=== PATIENT | male | born 2000 | race Caucasian/White ===

== ENCOUNTER 2025-06-06 13:41 | Emergency (ER) | payer OTHER, SELFPAY ==
[2025-06-06 13:42] VITALS: BP 116/68; BMI 26.0
[2025-06-06 13:47] VITALS: BP 116/68
[2025-06-06 13:57] LABS: Hematocrit 51.1 % (39.0-52.0); Hemoglobin 17.7 g/dL (13.0-18.0); Mean Corp Hgb Conc. 34.6 g/dL (33.0-37.0); Mean Corpuscular Volume 85.7 fL (80.0-94.0); Nucleated Red Blood Cells % 0 % (-); Platelet Count 258 10^3/uL (130-400); Red Cell Dist. Width 12.1 % (11.5-14.5)
[2025-06-06 14:00] VITALS: BP 119/78
[2025-06-06 14:18] LABS: ALT (SGPT) 20 U/L (0-50); AST (SGOT) 26 U/L (17-59); Albumin 5.2 g/dl (3.5-5.0); Alkaline Phosphatase 49 U/L (38-126); Blood Urea Nitrogen 24 mg/dl (9-20); Calcium 10.2 mg/dl (8.4-10.2); Carbon Dioxide 30 mmol/L (22-30); Chloride 99 mmol/L (98-107); Estimated Creatinine Clearance 83 ml/min; Glucose 113 mg/dl (70-99); Potassium 4.9 mmol/L (3.5-5.1); Sodium 138 mmol/L (135-145); Total Protein 7.8 g/dl (6.3-8.2); eGFR > 60.00
--- NOTE | 2025-06-06 14:21 | ED.GENMED ---
History of Present Illness
General
Chief Complaint: Dizziness
Source: patient
Time Seen by Provider: 06/06/25 13:56
History of Present Illness
History of Present Illness:
24-year-old male presents to the emergency room from [facility] because he felt his heart was fluttering. Patient developed the symptoms after taking his Wellbutrin. He is concerned he may have got too much. He states that
they typically crushes medications so he is not sure if it was just 1 pill and there patient denies taking any recreational drugs. He denies any other complaints. He has been incarcerated for the past week.
Phy Exam
Physical Exam
Physical Exam:
General: Awake, Alert, Oriented X3. No acute distress.
Vitals: unremarkable
Head: Atraumatic
Eyes: Pupils equal, EOMI
Throat: Airway intact, no exudates
Neck: Trachea midline
Lungs: Clear and equal b/l
Heart: Regular rate, no murmurs
Abd: Soft, Nontender, No pulsatile mass
Neuro: Nonfocal
Skin: Warm, dry, no rash
Extremities: pulses equal b/l, no edema
Course
Orders/Labs/Results
Orders:
Orders
06/06/25 13:49
EKG [Electrocardiogram (*1)] Urgent
Reason for Study: Tachycardia
EKG- Treatment ONCE
06/06/25 13:51
Complete Blood Count/With Diff Urgent
Comprehensive Metabolic Panel Urgent
Abnormal Lab Results
06/06/25
13:51
Absolute Monos (auto) 1.0 H 10^3/uL
(0.1-0.6)
Lymphocytes % 16.0 L %
(20.5-51.1)
Monocytes % 11.0 H %
(1.7-9.3)
BUN 24 H mg/dl
(9-20)
Glucose 113 H mg/dl
(70-99)
Albumin 5.2 H g/dl
(3.5-5.0)
06/06/25 13:51
06/06/25 13:51
Vital Signs
Initial and Last Documented VS:
Initial Vital Signs
Temp Pulse Resp BP Pulse Ox
97.5 F 68 20 116/68 99
06/06/25 13:42 06/06/25 13:42 06/06/25 13:42 06/06/25 13:42 06/06/25 13:42
Last Documented Vital Signs
Temp Pulse Resp BP Pulse Ox
97.5 F 70 19 119/78 99
06/06/25 13:42 06/06/25 14:30 06/06/25 14:30 06/06/25 14:00 06/06/25 14:30
MDM/Problems Addressed
Differential Diagnosis Includes:
SVT, PACs, PVCs
MDM/Problems Addressed:
Patient presents with palpitations and feeling jittery after taking his Wellbutrin at present. Vital signs are normal here. He was observed for an hour without any abnormalities noted. Physical exam is benign. Labs are normal.
*Pulse Oximetry
SaO2: 99
Oxygen Mode of Delivery: Room air
Patient hypoxic: no
*EKG
Interpreted by ED Provider?: Yes
Interpretation: normal
Heart Rate: 71
Rate: normal
Rhythm: sinus
Ray: normal axis
Interval: normal interval
QRS Pattern: normal QRS
Ischemia: no ischemia
*[employer] Team Leader Interpretation
Rate: normal
Interpretation: normal
Rhythm: sinus
*Critical Care Note
Total Time (30-74mins, 75-104mins- exclusive of procedures): Not Applicable
ED Attending Note
-
Portions of this chart may have been created with voice recognition software.� Occasional wrong word or��sound alike� substitutions may have occurred due to the inherent limitations of voice recognition software.
Discharge Plan
Departure
Patient Disposition: Skilled Nursing
Date of Disposition: 06/06/25
Time of Disposition: 14:36
Condition: Good
Discharge Problem:
Palpitations
Instructions: Palpitations - ED (DC)
Referrals:
[facility] [Family Provider, General]
Interventions
Interventions:
*Risk Screen - Suicide Last Done: 06/06/25 13:42
*General Assessment Last Done: 06/06/25 13:42
*Neglect/Abuse Screening Last Done: 06/06/25 13:42
*ED- Fall Risk Assessment Last Done: 06/06/25 13:42
*ED COVID-19 Vaccine History Last Done: 06/06/25 13:42
*Nursing Disposition Last Done: 06/06/25 14:51
ED- Neurological Assessment Last Done: 06/06/25 13:55
ED- Cardiac Assessment Last Done: 06/06/25 13:55
ED Swallowing Screen Last Done: 06/06/25 14:37
Discharge Date and Time
Discharge Date/Time: 06/06/25 14:51
Print Language: SYRIAN
== END 2025-06-06 14:51 ==
LOC: EMR 13:41
PROVIDERS: EMERGENCY PHYSICIAN Emergency Medicine
DX: R00.2 Palpitations (principal)
CPT/HCPCS: 99283; 80053; 85025; 93005